=== PATIENT | male | born 2000 | race African-American/Black ===

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

== ENCOUNTER 2021-04-07 09:17 | Emergency (ER) | payer MEDICAID ==
[~2021-04-07] VITALS: Ht 185.4 cm; Wt 96.0 kg
[2021-04-07 10:22] LABS: BASOPHILS % 0.6 % (0.0-2.0); EOSINOPHILS % 2.1 % (0.0-5.0); HEMATOCRIT. 41.8 % (42.0-52.0); HEMOGLOBIN. 14.6 g/dL (14.0-18.0); LYMPHOCYTES % 33.3 % (20.0-50.0); MEAN CORPUSCULAR HEMOGLOBIN 31.3 pg (28.0-32.0); MEAN CORPUSCULAR VOLUME 89.3 fL (80.0-94.0); MEAN PLATELET VOLUME 8.1 fl (7.4-10.4); MONOCYTES % 8.2 % (2.0-8.0); NEUTROPHILS % 55.8 % (40.0-76.0); PLATELET 260 x1000/uL (130-400); RED BLOOD CELL COUNT 4.68 mill/uL (4.7-6.1); RED CELL DISTRIBUTION WIDTH 15.5 % (11.6-14.6)
[2021-04-07 10:40] LABS: CHLORIDE 109 mEq/L (98-107)
[2021-04-07 12:15] VITALS: BP 149/73
== END 2021-04-07 12:29 | disposition home or self-care (01) ==
LOC: ER 09:17
DX: G62.9 Polyneuropathy, unspecified (principal)
CPT/HCPCS: 36415; 80053; 82962; 83735; 85025; 93970; 99284; Z7610

== ENCOUNTER 2022-09-25 05:56 | Emergency (ER) | payer MEDICAID ==
[~2022-09-25] VITALS: Ht 188 cm; Wt 107.0 kg
[2022-09-25 08:03] LABS: CLARITY URINE CLOUDY (CLEAR); COLOR URINE YELLOW (YELLOW); KETONES URINE NEGATIVE (NEGATIVE); LEUKOCYTE ESTERASE URINE 3+ (NEGATIVE); NITRITE URINE NEGATIVE (NEGATIVE); OCCULT BLOOD URINE 3+ (NEGATIVE); PROTEIN URINE TRACE (NEGATIVE); SPECIFIC GRAVITY URINE 1.014 (1.005-1.030); UROBILINOGEN URINE 0.2 E.U./dL (0.2-1.0)
[2022-09-25] MEDS ORDERED: CEFTRIAXONE SODIUM 500 MG/VIAL IM ONE (08:15)
[2022-09-25] MEDS ORDERED: DOXY100T2 MT (08:19)
[2022-09-25 09:18] VITALS: BP 124/78
[2022-09-29 04:09] LABS: NEISSERIA GONORRHOEAE NAA Positive (Negative)
== END 2022-09-25 09:18 | disposition home or self-care (01) ==
LOC: ER 05:56
DX: N34.2 Other urethritis (principal)
CPT/HCPCS: 81003; 87077; 87086; 87491; 87591; 96372; 99283; J0696; Z7610

== ENCOUNTER 2023-04-10 14:24 | Emergency (ER) | payer MEDICAID, OTHER ==
[~2023-04-10] VITALS: Ht 188 cm; Wt 134.4 kg
[~2023-04-10 14:24] MED LIST changes: -BUPR150T9; +DOXY100T2 MT
[2023-04-10 14:34] VITALS: BP 116/81; PULSE 84; RESP 18; TEMP 98.7; O2SAT 99
[2023-04-10] MEDS ORDERED: DOXY-456 PO (17:02)
[2023-04-10] MEDS ORDERED: NAPR-681 PO (17:02)
== END 2023-04-10 17:59 | disposition home or self-care (01) ==
LOC: ER 14:57
DX: S93.402A Sprain of unspecified ligament of left ankle, initial encounter (principal); N49.2 Inflammatory disorders of scrotum; X58.XXXA Exposure to other specified factors, initial encounter; Y93.89 Activity, other specified; Y92.89 Other specified places as the place of occurrence of the external cause; Y99.8 Other external cause status
CPT/HCPCS: 73610; 73630; 99284

== ENCOUNTER 2024-03-29 00:34 | Emergency (ER) | payer OTHER ==
[~2024-03-29] VITALS: Ht 188 cm; Wt 113.0 kg
[~2024-03-29 00:34] MED LIST changes: +DOXY-456 PO; +NAPR-681 PO
[2024-03-29 00:38] VITALS: TEMP 98.7; O2SAT 98
[2024-03-29] MEDS: BACITRACIN ZINC OINT UDPKT TOP ONE (01:00)
[2024-03-29] MEDS: IBUPROFEN 600MG TABLET PO STA (01:32)
[2024-03-29] MEDS ORDERED: SULF1TAB48 MT (02:54)
[2024-03-29] MEDS ORDERED: TRAM50TA3 MT (02:54)
[2024-03-29] MEDS ORDERED: NAPR-681 MT (02:54)
[2024-03-29] MEDS ORDERED: CEPH500C2 MT (02:54)
[2024-03-29 03:43] VITALS: BP 128/76; PULSE 80; RESP 18
== END 2024-03-29 03:44 | disposition home or self-care (01) ==
LOC: ER 00:34
DX: S93.401A Sprain of unspecified ligament of right ankle, initial encounter (principal); L03.113 Cellulitis of right upper limb; K59.00 Constipation, unspecified; Z87.440 Personal history of urinary (tract) infections; W18.39XA Other fall on same level, initial encounter; Y93.89 Activity, other specified; Y92.89 Other specified places as the place of occurrence of the external cause; Y99.8 Other external cause status
CPT/HCPCS: 73080; 73610; 99284; Z7610 ×2

== ENCOUNTER 2024-10-05 15:31 | Emergency (ER) | payer OTHER ==
[~2024-10-05] VITALS: Ht 188 cm; Wt 118.0 kg
[~2024-10-05 15:31] MED LIST changes: +CEPH500C2 MT; -DOXY-456 PO; +DOXY100C74 PO; +NAPR-681 MT; +SULF1TAB48 MT; +TRAM50TA3 MT
[2024-10-05 15:34] VITALS: PULSE 80; RESP 16; O2SAT 99
[2024-10-05 15:37] VITALS: BP 153/107; TEMP 98.6; O2SAT 99
[2024-10-05] MEDS ORDERED: NAPR220C61 MT (22:43)
== END 2024-10-05 23:31 | disposition home or self-care (01) ==
LOC: ER 15:31
DX: S92.351A Displaced fracture of fifth metatarsal bone, right foot, initial encounter for closed fracture (principal); G89.11 Acute pain due to trauma; Z79.899 Other long term (current) drug therapy; X58.XXXA Exposure to other specified factors, initial encounter; Y93.89 Activity, other specified; Y92.89 Other specified places as the place of occurrence of the external cause; Y99.8 Other external cause status
CPT/HCPCS: 73610; 73630; 29515; 99284; Z7610